=== PATIENT | female | born 1995 | race Caucasian/White ===

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

== ENCOUNTER 2017-06-29 15:50 | Emergency (ER) | payer OTHER ==
[2017-06-29 16:08] VITALS: BP 123/70
--- NOTE | 2017-06-29 16:27 | XRAY Preliminary Report ---
Exam: XR ANKLE 3 VIEW LT IMPRESSION: Moderate lateral and anterior ankle soft tissue swelling. No evidence for acute fracture. [facility] SITE ID: [id number]
--- NOTE | 2017-06-29 16:28 | XRAY Report ---
EXAM: LEFT ANKLE RADIOGRAPHY EXAM DATE: 06/29/2017 04:19 PM. CLINICAL HISTORY: Trauma. Trampling injury, left lateral pain. COMPARISON: None. TECHNIQUE: 3 views. FINDINGS: Bones: Normal. No fractures or bone lesions. Joints: Normal alignment. Mortise appears intact. Soft Tissues: Moderate lateral and anterior ankle soft tissue swelling. IMPRESSION: Moderate lateral and anterior ankle soft tissue swelling. No evidence for acute fracture. [facility] Referring Provider Line: [phone] SITE ID: [id number]
--- NOTE | 2017-06-29 16:51 | ED Physician Documentation ---
PD HPI LOWER EXT INJURY - Stated complaint Stated Complaint: L ANKLE INI - Chief complaint Chief Complaint: Ext Problem - History obtained from History obtained from: Patient - History of Present Illness PD HPI LOW EXT INJURY LOCATION: Other (Inversion injury of the left ankle yesterday on a trampoline, cannot walk or bear weight now. No other injuries.) Review of Systems Constitutional: denies: Fever, Chills Cardiac: reports: Reviewed and negative Respiratory: reports: Reviewed and negative PD PAST MEDICAL HISTORY - Past Medical History Musculoskeletal: None - Past Surgical History Past Surgical History: No - Present Medications Home Medications: Ambulatory Orders Medication Instructions Recorded Confirmed Ibuprofen [Motrin] 800 mg PO Q8H PRN #30 tablet 06/29/17 - Allergies Allergies/Adverse Reactions: Allergies Allergy/AdvReac Type Severity Reaction Status Date / Time No Known Drug Allergies Allergy Verified 06/29/17 16:07 - Social History Does the pt smoke?: No Smoking Status: Never smoker Does the pt drink ETOH?: No Does the pt have substance abuse?: No - Immunizations Immunizations are current?: Yes PD ED PE NORMAL - Vitals Vital signs reviewed: Yes - General General: Alert and oriented X 3, No acute distress - Extremities Extremities: Other (Left ankle is tender laterally over the malleolus and the ATFL, no medial or anterior tenderness, no foot or proximal fibular tenderness.) - Neuro Neuro: Alert and oriented X 3, Normal speech Results - Vitals Vitals: Vital Signs - 24 hr 06/29/17 16:04 Temperature 36.2 C L Heart Rate 84 Respiratory 16 Rate Blood Pressure 123/70 O2 Saturation 100 Oxygen O2 Source Room air - Rads (name of study) 3v L ankle Radiology: EMP read contemporaneously (STS no frx) Departure - Departure Disposition: Home, Self Care Clinical Impression: Left ankle sprain Qualifiers: Encounter type: initial encounter Involved ligament of ankle: anterior talofibular ligament Qualified Code(s): S93.492A - Sprain of other ligament of left ankle, initial encounter Condition: Good Record reviewed to determine appropriate education?: Yes Instructions: ED Sprain Ankle W X Ray Prescriptions: Ibuprofen [Motrin] 800 mg PO Q8H PRN #30 tablet PRN Reason: PAIN &/OR FEVER Comments[place]. Forms: Activity restrictions
== END 2017-06-29 17:11 | disposition home or self-care (01) ==
LOC: ED 15:50
DX: S93.492A Sprain of other ligament of left ankle, initial encounter (principal); X50.1XXA Overexertion from prolonged static or awkward postures, initial encounter; Y93.44 Activity, trampolining
CPT/HCPCS: 99283

== ENCOUNTER 2018-11-28 16:24 | Emergency (ER) | payer OTHER ==
[2018-11-28 16:34] VITALS: BP 133/76
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
--- NOTE | 2018-11-28 17:53 | XRAY Report ---
Reason: fall medial knee pain Procedure Date: 11/28/2018 Accession Number: [id number] / [id number] Procedure: XR - Knee 4 View LT CPT Code: FULL RESULT: EXAM: LEFT KNEE RADIOGRAPHY EXAM DATE: 11/28/2018 05:07 PM. CLINICAL HISTORY: Fall medial knee pain. COMPARISON: None. TECHNIQUE: 4 views. FINDINGS: Bones: Normal. No fractures or bone lesions. Joints: Normal. No effusion. No subluxations. Soft Tissues: Normal. No soft tissue swelling. IMPRESSION: Normal knee radiography. [facility]
--- NOTE | 2018-11-28 17:54 | XRAY Report ---
Reason: fall lateral calf pain Procedure Date: 11/28/2018 Accession Number: [id number] / [id number] Procedure: XR - Tib/Fib LT CPT Code: FULL RESULT: EXAM: LEFT TIBIA/FIBULA RADIOGRAPHY EXAM DATE: 11/28/2018 05:07 PM. CLINICAL HISTORY: Fall lateral calf pain. COMPARISON: ANKLE 3 VIEW RT 12/26/2016 10:02 AM. TECHNIQUE: 2 views. FINDINGS: Bones: Normal. No fracture or bone lesion. Joints: The visualized knee and ankle joints are normal. No effusions. Soft Tissues: Normal. No soft tissue swelling. IMPRESSION: Normal tibia/fibula radiography. [facility]
== END 2018-11-28 18:35 | disposition home or self-care (01) ==
LOC: ED 16:24
DX: S83.92XA Sprain of unspecified site of left knee, initial encounter (principal); Y04.2XXA Assault by strike against or bumped into by another person, initial encounter; Y93.89 Activity, other specified; Y92.009 Unspecified place in unspecified non-institutional (private) residence as the place of occurrence of the external cause
CPT/HCPCS: 99282; 99283

== ENCOUNTER 2020-01-21 14:51 | Outpatient (CLI) | payer OTHER ==
--- NOTE | 2020-01-23 09:30 | MRI Report ---
PROCEDURE: Knee LT W/O INDICATIONS: PAIN IN LT KNEE TECHNIQUE: Noncontrast sagittal PD fast spin echo and T2 fast spin echo with fat saturation, sagittal 3-D gradie nt sequence with fat saturation; coronal T1 spin echo and PD fast spin echo with fat saturation, and axial PD fast spin echo with fat saturation through the knee. COMPARISON: None. FINDINGS: Image quality: Excellent. Menisci: Medial meniscus intact. Lateral meniscus intact. Cruciate ligaments: Anterior cruciate ligament appears intact. Posterior cruciate ligament appears intact. Medial structures: The medial collateral ligament appears intact. The semimembranosus tendon appears intact. Visualized portions of the pes anserinus tendons appear normal. No abnormal bursal fluid. Lateral structures: Lateral collateral ligament appears grossly intact. Biceps femoris tendon appears intact. Iliotibial band within normal limits. Popliteus tendon within normal limits. Anterior structures: Patellar tendon appears intact. There is minimal prepatellar edema. Quadriceps tendon appears intact. Medial and lateral patellofemoral ligaments appear grossly intact. Patellar alignment is normal. Hoffa's fat pad unremarkable. Bones and cartilage: No bone marrow contusions or fractures. Within the medial compartment, no focal cartilage defect Within the lateral compartment, no focal cartilage defect Within the patellofemoral compartment, normal appearance Joint space: No joint effusion. No Gr?s cyst. No specific evidence of loose body identified. IMPRESSION: Minimal prepatellar edema. Overall, no internal derangement identified. Normal MR appearance of the p atellofemoral compartment articular cartilage Reviewed by: Musa Grewal MD on 01/23/2020 9:29 AM PDT Approved by: Musa Grewal MD on 01/23/2020 9:29 AM PDT Station ID: [id number]
== END 2020-01-21 14:52 | disposition home or self-care (01) ==
LOC: DI 14:51
DX: R60.0 Localized edema (principal)

== ENCOUNTER 2020-06-17 19:01 | Emergency (ER) | payer OTHER ==
--- NOTE | 2020-06-17 19:14 | ED Physician Documentation ---
PD HPI LOWER EXT INJURY - Stated complaint Stated Complaint: FELL DOWN STAIRS - Chief complaint Chief Complaint: Trauma Ext - History obtained from History obtained from: Patient - History of Present Illness Where injury occurred: Home Timing - onset: Today - Additional information Additional information: She tripped over her cat and fell down several stairs at home. Fell down and heard a pop in the right knee with mild pain there but definitely more if she moves or walks. She is able to walk and bear weight though. Her next a little sore but nothing major. No loss of consciousness or head injury. No possibility of . Declines pain medication on initial evaluation. Review of Systems Ten Systems: 10 systems reviewed and negative Constitutional: reports: Reviewed and negative Ears: reports: Reviewed and negative Nose: reports: Reviewed and negative Throat: reports: Reviewed and negative Cardiac: reports: Reviewed and negative Respiratory: reports: Reviewed and negative PD PAST MEDICAL HISTORY - Past Medical History Musculoskeletal: None - Past Surgical History Past Surgical History: No - Present Medications Home Medications: Ambulatory Orders Medication Instructions Recorded Confirmed No Known Home Medications 11/28/18 06/17/20 - Allergies Allergies/Adverse Reactions: Allergies Allergy/AdvReac Type Severity Reaction Status Date / Time No Known Drug Allergies Allergy Verified 06/17/20 19:03 - Social History Does the pt smoke?: No Smoking Status: Never smoker Does the pt drink ETOH?: No Does the pt have substance abuse?: No - Immunizations Immunizations are current?: Yes - POLST Patient has POLST: No PD ED PE NORMAL - Vitals Vital signs reviewed: Yes - General General: Alert and oriented X 3, No acute distress - HEENT HEENT: PERRL, EOMI - Neck Neck: Supple, no meningeal sign, No bony TTP - Extremities Extremities: Other (There is a tiny effusion of the right knee, no bony tenderness. Ligamentous testing is painless except for MCL testing which is mildly painful but no laxity. Very mild pain with grind testing.) - Neuro Neuro: Alert and oriented X 3, Normal speech Results - Vitals Vitals: Vital Signs - 24 hr 06/17/20 19:04 Temperature 36.4 C L Heart Rate 95 Respiratory 16 Rate Blood Pressure 114/65 O2 Saturation 100 Oxygen O2 Source Room air PD MEDICAL DECISION MAKING - ED course ED course: Consideration was given to the possibility of a cervical spine injury in this patient. The nexus criteria were applied. The patient has no focal neurologic deficit on examination. The patient has no midline spinal tenderness. The patient has a normal level of consciousness. The patient has no evidence of intoxication. There is no distracting injury presents. Given that these were all negative, per the Nexus criteria the cervical spine was cleared without imaging. 24-year-old woman presents after knee injury from falling down the stairs. Nexus negative and no other significant injuries noted. Placed in a knee immobilizer after normal x-rays, 4 view interpreted contemporaneously by me. I do not think she has a significant internal derangement based on exam but close follow-up is advised if not improving very quickly. Departure - Departure Disposition: 01 Home, Self Care Clinical Impression: Knee sprain Qualifiers: Encounter type: initial encounter Involved ligament of knee: unspecified ligament Laterality: right Qualified Code(s): S83.91XA - Sprain of unspecified site of right knee, initial encounter Condition: Good Record reviewed to determine appropriate education?: Yes Instructions: ED Sprain Knee Comments: You can wear the knee immobilizer as needed and ibuprofen as needed for pain. 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 Return if worsening.
--- NOTE | 2020-06-17 19:47 | XRAY Report ---
PROCEDURE: Knee 4 View RT INDICATIONS: knee inj TECHNIQUE: 4 views of the right knee(s) were acquired. COMPARISON: Contralateral left knee x-rays 11/28/2018. FINDINGS: Bones: No fractures or dislocations. No suspicious bony lesions. Soft tissues: No significant joint effusion. No suspicious soft tissue calcifications. IMPRESSION: No acute osseous abnormality. Reviewed by: Ty Michelle MD on 06/17/2020 7:46 PM PST Approved by: Ty Michelle MD on 06/17/2020 7:46 PM PST Station ID: [id number]
[2020-06-17 20:03] VITALS: BP 118/64
== END 2020-06-17 20:05 | disposition home or self-care (01) ==
LOC: ED 19:01
DX: S83.91XA Sprain of unspecified site of right knee, initial encounter (principal); W01.0XXA Fall on same level from slipping, tripping and stumbling without subsequent striking against object, initial encounter; Y92.009 Unspecified place in unspecified non-institutional (private) residence as the place of occurrence of the external cause
CPT/HCPCS: 99283; 99284